=== PATIENT | female | born 1980 | race Caucasian/White ===

== ENCOUNTER 2018-02-18 06:51 | Outpatient (CLI) | payer OTHER ==
[~2018-02-18 06:51] MED LIST: LEVSIN/SL0.125 MG SL; PEPCID40 MG PO; TYLENOL325 MG PO; [UNRECOGNIZED DRUG - OTHER]
== END 2018-02-18 06:59 | disposition home or self-care (01) ==
LOC: LAB 06:51
DX: Z00.00 Encounter for general adult medical examination without abnormal findings (principal); R42 Dizziness and giddiness; E78.89 Other lipoprotein metabolism disorders

== ENCOUNTER 2018-05-18 11:15 | Outpatient (CLI) | payer OTHER | END 2018-05-18 17:30 | disposition home or self-care (01) | LOC: LAB 11:15 | DX: N92.4 Excessive bleeding in the premenopausal period (principal); Z11.3 Encounter for screening for infections with a predominantly sexual mode of transmission ==

== ENCOUNTER → 2018-12-01 11:51 | Outpatient (CLI) | payer OTHER | END | disposition home or self-care (01) | LOC: LAB 11:39 | DX: R05 Cough (principal); J11.1 Influenza due to unidentified influenza virus with other respiratory manifestations ==

== ENCOUNTER 2019-07-14 14:26 | Outpatient (CLI) | payer OTHER ==
[~2019-07-14] VITALS: Ht 170.2 cm; Wt 115.2 kg
== END 2019-07-14 16:00 | disposition home or self-care (01) ==
LOC: OFIC 805 14:26
PROVIDERS: ATTEND Otolaryngology
DX: H60.8X2 Other otitis externa, left ear (principal); H60.02 Abscess of left external ear; H61.23 Impacted cerumen, bilateral; H90.42 Sensorineural hearing loss, unilateral, left ear, with unrestricted hearing on the contralateral side

== ENCOUNTER → 2019-08-31 06:35 | Outpatient (CLI) | payer OTHER | END | disposition home or self-care (01) | LOC: LAB 06:35 | PROVIDERS: ATTEND Obstetrics & Gynecology | DX: N91.1 Secondary amenorrhea (principal) ==

== ENCOUNTER 2019-11-09 06:00 | Outpatient (CLI) | payer OTHER | END 2019-11-09 15:00 | disposition home or self-care (01) | LOC: PPH VACUNA 06:00 | DX: Z23 Encounter for immunization (principal) ==

== ENCOUNTER → 2019-12-27 09:38 | Outpatient (CLI) | payer OTHER | END | disposition home or self-care (01) | LOC: LAB 09:38 | PROVIDERS: ATTEND Anesthesiology | DX: Z20.818 Contact with and (suspected) exposure to other bacterial communicable diseases (principal) ==

== ENCOUNTER 2020-02-08 14:21 | Outpatient (CLI) | payer OTHER | END 2020-02-08 14:22 | disposition home or self-care (01) | LOC: PPH VACUNA 14:21 | DX: Z23 Encounter for immunization (principal) ==

== ENCOUNTER 2020-05-18 06:45 | Outpatient (CLI) | payer OTHER | END 2020-05-18 06:50 | disposition home or self-care (01) | LOC: LAB 06:45 | PROVIDERS: ATTEND Anesthesiology | DX: D68.8 Other specified coagulation defects (principal); E11.9 Type 2 diabetes mellitus without complications ==

== ENCOUNTER → 2020-07-10 08:45 | Outpatient (CLI) | payer OTHER | END | disposition home or self-care (01) | LOC: LAB 08:45 | PROVIDERS: ATTEND Anesthesiology | DX: Z03.818 Encounter for observation for suspected exposure to other biological agents ruled out (principal) ==

== ENCOUNTER 2020-09-07 13:02 | Outpatient (CLI) | payer OTHER | END 2020-09-07 13:06 | disposition home or self-care (01) | LOC: MAMO-SONO 13:02 | PROVIDERS: ATTEND Anesthesiology | DX: Z12.31 Encounter for screening mammogram for malignant neoplasm of breast (principal); N64.59 Other signs and symptoms in breast ==

== ENCOUNTER → 2020-09-08 12:15 | Outpatient (CLI) | payer OTHER | END | disposition home or self-care (01) | LOC: LAB 12:15 | PROVIDERS: ATTEND Anesthesiology | DX: Z03.818 Encounter for observation for suspected exposure to other biological agents ruled out (principal) ==

== ENCOUNTER → 2020-09-21 | Outpatient (CLI) | payer OTHER | END | disposition home or self-care (01) | LOC: LAB 10:31 | PROVIDERS: ATTEND Emergency Medicine Pediatric Emergency Medicine | DX: Z03.818 Encounter for observation for suspected exposure to other biological agents ruled out (principal) ==

== ENCOUNTER 2020-09-26 10:10 | Outpatient (CLI) | payer OTHER | END 2020-09-26 10:12 | disposition home or self-care (01) | LOC: SONOGRAMA 10:10 | PROVIDERS: ATTEND Obstetrics & Gynecology | DX: N60.11 Diffuse cystic mastopathy of right breast (principal) ==

== ENCOUNTER → 2020-11-21 | Outpatient (CLI) | payer OTHER | END | disposition home or self-care (01) | LOC: PPH VACUNA 08:00 | PROVIDERS: ATTEND Emergency Medicine Pediatric Emergency Medicine | DX: Z23 Encounter for immunization (principal) ==

== ENCOUNTER 2021-03-27 06:29 | Outpatient (CLI) | payer OTHER | END 2021-03-27 06:30 | disposition home or self-care (01) | LOC: LAB 06:29 | PROVIDERS: ATTEND Anesthesiology | DX: E11.9 Type 2 diabetes mellitus without complications (principal); E03.9 Hypothyroidism, unspecified ==

== ENCOUNTER 2021-09-28 12:20 | Outpatient (CLI) | payer OTHER | END 2021-09-28 12:22 | disposition home or self-care (01) | LOC: SONOGRAMA 12:20 | PROVIDERS: ATTEND Anesthesiology | DX: N60.11 Diffuse cystic mastopathy of right breast (principal) ==

== ENCOUNTER 2021-10-30 08:00 | Outpatient (CLI) | payer OTHER | END 2021-10-30 08:05 | disposition home or self-care (01) | LOC: PPH VACUNA 08:00 | PROVIDERS: ATTEND Emergency Medicine Pediatric Emergency Medicine | DX: Z23 Encounter for immunization (principal) ==

== ENCOUNTER 2022-02-11 10:20 | Outpatient (CLI) | payer OTHER | END 2022-02-11 10:30 | disposition home or self-care (01) | LOC: PPH VACUNA 10:20 | PROVIDERS: ATTEND Emergency Medicine Pediatric Emergency Medicine | DX: Z23 Encounter for immunization (principal) ==

== ENCOUNTER → 2022-09-12 06:52 | Outpatient (CLI) | payer OTHER | END | disposition home or self-care (01) | LOC: LAB 06:52 | DX: D64.9 Anemia, unspecified (principal); R10.9 Unspecified abdominal pain; N39.0 Urinary tract infection, site not specified; E78.5 Hyperlipidemia, unspecified; E11.9 Type 2 diabetes mellitus without complications ==

== ENCOUNTER 2022-09-20 08:29 | Outpatient (CLI) | payer OTHER | END 2022-09-20 08:36 | disposition home or self-care (01) | LOC: MAMO-SONO 08:29 | PROVIDERS: ATTEND Anesthesiology | DX: Z12.31 Encounter for screening mammogram for malignant neoplasm of breast (principal); N60.11 Diffuse cystic mastopathy of right breast; N60.12 Diffuse cystic mastopathy of left breast ==

== ENCOUNTER 2023-04-15 13:39 | Outpatient (CLI) | payer OTHER ==
[~2023-04-15 13:39] MED LIST changes: +GORDON'S VITE A75 GM PO; +VITAMIN C PO; +ZINC PO
== END 2023-04-15 13:52 | disposition home or self-care (01) ==
LOC: MRI 13:39
PROVIDERS: ATTEND Anesthesiology
DX: M25.571 Pain in right ankle and joints of right foot (principal)
CPT/HCPCS: 73721

== ENCOUNTER 2023-09-30 13:32 | Outpatient (CLI) | payer OTHER | END 2023-09-30 13:37 | disposition home or self-care (01) | LOC: MAMO-SONO 13:32 | PROVIDERS: ATTEND Anesthesiology | DX: Z12.31 Encounter for screening mammogram for malignant neoplasm of breast (principal) ==

== ENCOUNTER 2023-10-15 06:53 | Outpatient (CLI) | payer OTHER | END 2023-10-15 07:19 | disposition home or self-care (01) | LOC: LAB 06:53 | PROVIDERS: ATTEND Preventive Medicine Occupational Medicine | DX: B19.10 Unspecified viral hepatitis B without hepatic coma (principal) ==

== ENCOUNTER 2023-11-27 09:30 | Outpatient (CLI) | payer OTHER | END 2023-11-27 10:00 | disposition home or self-care (01) | LOC: PPH VACUNA 09:30 | PROVIDERS: ATTEND Emergency Medicine Pediatric Emergency Medicine | DX: Z23 Encounter for immunization (principal) ==

== ENCOUNTER 2024-05-17 08:42 | Outpatient (CLI) | payer OTHER ==
[2024-05-18 11:05] LABS: HEPATITIS B SURFACE ANTIBODY Reactive (.); HEPATITIS C VIRUS ANTIBODY Non Reactive (Non Reactive)
== END 2024-05-17 09:14 | disposition home or self-care (01) ==
LOC: LAB 08:42
DX: A64 Unspecified sexually transmitted disease (principal); B19.9 Unspecified viral hepatitis without hepatic coma

== ENCOUNTER 2024-09-02 06:15 | Outpatient (CLI) | payer OTHER ==
[2024-09-02 07:11] LABS: URINE APPEARANCE Clear; URINE BILIRRUBIN Negative (NEGATIVE); URINE BLOOD Large; URINE COLOR Yellow; URINE GLUCOSE Negative (NEGATIVE); URINE KETONE 15 (NEGATIVE); URINE LEUKOCYTE Small; URINE NITRATE Negative; URINE PROTEIN Negative (NEGATIVE); URINE UROBILINOGEN 0.2 E.U./dl
[2024-09-02 07:15] LABS: URINE BACTERIA 286.7 uL (0.0-1933); URINE EPITHELIAL CELLS 18.6 uL (0.0-38.8); URINE RBC 358.8 uL (0.0-20.8); URINE WBC 48.5 uL (0.0-23.2)
[2024-09-02 07:24] LABS: BASO % 0.4 % (0.1-1.2); EOS # 0.09 (0.04-0.54); EOS % 1.9 % (0.7-7.0); LYMPH # 1.39 (1.18-3.74); LYMPH % 29.4 % (19.3-53.1); MEAN PLATELET VOLUME 10.50 fl (9.4-12.4); MONO # 0.35 (0.24-0.82); MONO % 7.4 % (4.7-12.5); NEUT # 2.87 (1.56-6.13); NEUT % 60.7 % (34.0-71.1); RED CELL DISTRIBUTION WIDTH 13.2 % (11.6-14.4)
[2024-09-02 07:30] LABS: URINE CAST 0.00 uL (0.0-1.40)
[2024-09-02 08:02] LABS: ALT/SGPT 22.0 U/L (12-78); AST/SGOT 22.0 U/L (15-37); BILIRUBIN TOTAL 0.43 mg/dL (0.3-1.2); BUN CREA RATIO 24.0 (7.0-25.0); CHOL HDL RATIO 2.1 (0-5.0); CREATININE SERUM 0.82 mg/dL (0.55-1.02); GFR 75.73; GLOBULINA 3.4 G/DL (2.4-3.5); GLUCOSE FASTING 84.0 mg/dL (65-100); HDL 69.0 mg/dl (40-60); LDL 61.0 mg/dl (0-130); OSMOLALITY SERUM 285.0 MOSM/KG (275-295); T4 FREE 0.94 NG/ML (0.76-1.46); TSH 1.36 uIU/mL (0.358-3.74); VLDL 14.0 (0-39)
== END 2024-09-02 06:52 | disposition home or self-care (01) ==
LOC: LAB 06:15
PROVIDERS: ATTEND Obstetrics & Gynecology
DX: N91.1 Secondary amenorrhea (principal)

== ENCOUNTER 2024-11-01 10:30 | Outpatient (CLI) | payer OTHER | END 2024-11-01 10:34 | disposition home or self-care (01) | LOC: MAMO-SONO 10:30 | PROVIDERS: ATTEND Obstetrics & Gynecology | DX: N60.11 Diffuse cystic mastopathy of right breast (principal); Z12.31 Encounter for screening mammogram for malignant neoplasm of breast ==

== ENCOUNTER 2024-12-21 10:00 | Outpatient (CLI) | payer OTHER | END 2024-12-21 10:10 | disposition home or self-care (01) | LOC: PPH VACUNA 10:00 | PROVIDERS: ATTEND Emergency Medicine Pediatric Emergency Medicine | DX: Z23 Encounter for immunization (principal) ==